=== PATIENT | female | born 1990 | race Caucasian/White ===

== ENCOUNTER 2024-06-28 06:31 | Day surgery (SDC) | payer OTHER, SELFPAY ==
[2024-06-28 13:37] VITALS: BMI 32.5
[2024-06-28 13:38] VITALS: BMI 32.5
[2024-06-28 13:39] VITALS: BP 132/95
[2024-06-28 15:52] VITALS: BP 129/97
--- NOTE | 2024-06-28 15:57 | OR.RPT ---
Operative Report
Operative Report
DATE OF OPERATION: 06/28/2024
SURGEON: Joao Guzmán MD
PREOPERATIVE DIAGNOSIS: Fecal incontinence
POSTOPERATIVE DIAGNOSIS: Fecal incontinence, rectal polyps
OPERATION: Flexible sigmoidoscopy, endoanal ultrasound
ASSISTANTS:
1. None
ANESTHESIA: Propofol sedation
FINDINGS:
1. Flexible sigmoidoscopy reported separately; 2 small polyps in the proximal rectum and 1 small polyp in the distal rectum identified, removed with jumbo forceps
2. 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
SPECIMENS:
1. None
COMPLICATIONS: None
INDICATIONS: The patient is a 33-year-old female who developed episodes of fecal incontinence after her third vaginal delivery. She presents for flexible sigmoidoscopy with endoanal ultrasound to evaluate for any anal sphincter defects. The
procedure was discussed with the patient in detail, including the risks, benefits and alternatives. Risks described included, but not limited to, bloating, bleeding, bowel perforation, inability to complete the procedure and missed lesions. The
patient understood and agreed to proceed.
PROCEDURE IN DETAIL: The patient was taken to the endoscopy room and placed left lateral position. A timeout was performed verifying the correct patient, procedure, positioning and special equipment. Sedation was induced without complication.
I began the procedure by performing a flexible sigmoidoscopy. This is reported separately. I was able to advance to the 30 cm isa on the sigmoidoscope, and then encountered solid stool. 3 small polyps were noted in the rectum, as reported via
[employer], removed via jumbo forceps.
I then began the endoanal ultrasound. I inserted the rigid proctoscope sheath with obturator, then removed the obturator. I inserted the lubricated endoanal ultrasound until I felt resistance. I pulled the sheath back and clipped it into place.
I inflated the balloon until the lumen was flatly juxtaposed to the balloon. I then evaluated the distal rectum and anal canal by moving the crystal proximally and distally. I identified the levator ani sling and marked this as the proximal anal
canal. There was unfortunately significant air artifact within the balloon, precluding left half of the anal canal. I identified the mid anal canal and marked this. The internal anal sphincter was intact at this level. There appeared to be a
defect in the external anal sphincter of at least 90 degrees, which I marked. I advanced the crystal and identified the distal anal canal and marked this. I then inserted a gloved finger in the distal vaginal canal and marked out the perineal body
at the level of the mid anal canal, which measured 5.6 mm. I made a second measurement of the perineal body, which measured 2.2 mm, but this appeared to be quite distal and therefore, likely not media sales representative of the true size of the perineal body.
The disruption in the hyperechoic external anal sphincter in combination with the attenuated perineal body is consistent with a sphincter defect. The balloon was then desufflated and the sheath with endoanal ultrasound was removed.
At this point, the procedure was complete. The patient was awoken without complication. The patient tolerated the procedure well and was transferred to the recovery room in stable condition.
DICTATED BY: Joao Guzmán MD
[2024-06-28 16:15] VITALS: BP 128/74
[2024-06-28 16:25] VITALS: BP 128/74
== END 2024-06-28 16:51 | disposition home or self-care (01) ==
LOC: SDS 06:31
PROVIDERS: ATTENDING PHYSICIAN Surgery
DX: R15.9 Full incontinence of feces (principal); K62.1 Rectal polyp
CPT/HCPCS: 45331; 45341; 88305

== ENCOUNTER 2024-08-05 08:59 | Outpatient (RCR) | payer OTHER, SELFPAY | END 2024-08-05 23:59 | disposition home or self-care (01) | LOC: RPT 08:59 | PROVIDERS: ATTENDING PHYSICIAN Obstetrics & Gynecology; FAMILY PHYSICIAN Family Medicine | DX: N81.11 Cystocele, midline (principal); N39.3 Stress incontinence (female) (male); N81.6 Rectocele; R15.9 Full incontinence of feces; Z73.6 Limitation of activities due to disability | CPT/HCPCS: 97110; 97112; 97162; 97530 ==

== ENCOUNTER 2024-09-02 08:46 | Outpatient (RCR) | payer OTHER, SELFPAY | END 2024-09-02 23:59 | disposition home or self-care (01) | LOC: RPT 08:46 | PROVIDERS: ATTENDING PHYSICIAN Obstetrics & Gynecology; FAMILY PHYSICIAN Family Medicine | DX: N81.11 Cystocele, midline (principal); N39.3 Stress incontinence (female) (male); N81.6 Rectocele; R15.9 Full incontinence of feces; Z73.6 Limitation of activities due to disability | CPT/HCPCS: 97110; 97112; 97530 ==

== ENCOUNTER 2024-10-07 10:56 | Outpatient (RCR) | payer OTHER, SELFPAY | END 2024-10-07 23:59 | disposition home or self-care (01) | LOC: RPT 10:56 | PROVIDERS: ATTENDING PHYSICIAN Obstetrics & Gynecology; FAMILY PHYSICIAN Family Medicine | DX: N81.11 Cystocele, midline (principal); N39.3 Stress incontinence (female) (male); N81.6 Rectocele; R15.9 Full incontinence of feces; Z73.6 Limitation of activities due to disability | CPT/HCPCS: 97110; 97112; 97140; 97530 ==

== ENCOUNTER 2024-11-11 08:56 | Outpatient (RCR) | payer OTHER, SELFPAY | END 2024-11-11 23:59 | disposition home or self-care (01) | LOC: RPT 08:56 | PROVIDERS: ATTENDING PHYSICIAN Obstetrics & Gynecology; FAMILY PHYSICIAN Family Medicine | DX: N81.11 Cystocele, midline (principal); R15.9 Full incontinence of feces; Z73.6 Limitation of activities due to disability; N39.3 Stress incontinence (female) (male); N81.6 Rectocele | CPT/HCPCS: 97110; 97530 ==